=== PATIENT | female | born 2005 | race Two or more races ===

== ENCOUNTER 2024-02-08 11:39 | Emergency (ER) | payer OTHER ==
[~2024-02-08] VITALS: Ht 157.5 cm; Wt 56.7 kg
== END 2024-02-08 15:49 | disposition home or self-care (01) ==
LOC: ER 11:41 → EMR PED 11:41
DX: S50.01XA Contusion of right elbow, initial encounter (principal); W20.8XXA Other cause of strike by thrown, projected or falling object, initial encounter; Y93.89 Activity, other specified; Y92.832 Beach as the place of occurrence of the external cause; Y99.9 Unspecified external cause status